=== PATIENT | female | born 1980 | race American Indian/Alaskan Native ===

== ENCOUNTER 2021-03-14 11:38 | Emergency (ER) | payer SELFPAY ==
--- NOTE | 2021-03-14 12:11 | Emergency Department Report ---
ED General Adult HPI - General Chief complaint: Upper Respiratory Infection Stated complaint: CHESTPAIN,BODYPAIN THROAT Time Seen by Provider: 03/14/21 12:03 Source: patient Mode of arrival: Ambulatory Limitations: No Limitations - History of Present Illness Initial comments: 40-year-old female patient presents with complaints of cough, conges tion, and wheezing x4 days and urinary frequency x2 days. She admits to loss of taste and smell. She is not vaccinated for COVID-19. She denies any hemoptysis or shortness of breath, but admits to chest pain with coughing only. Past medical history includes recurrent bronchitis and depression. Surgical history total hysterectomy. She has not been tested for COVID-19. She denies any abdominal pain, nausea/vomiting, diarrhea, or stool changes. No vaginal discharge or vaginal bleeding/dyspareunia per patient. No known drug allergies per patient. - Related Data Home Medications Medication Instructions Recorded Confirmed Last Taken Butalb/Acetamin/Caff 50-325-40 1 tab PO Q4H PRN 05/23/13 05/23/13 05/23/13 09:00 [Fioricet] SUMAtriptan [Imitrex] 1 spray INNOSTRIL Q6H PRN 05/23/13 05/23/13 05/23/13 13:00 Previous Rx's Medication Instructions Recorded Last Taken Type HYDROcodone/ACETAMINOPHEN [[place] 1 each PO Q6HR PRN #20 tablet 05/23/13 Unknown Rx 5/325 Tablet] Ibuprofen [Motrin] 800 mg PO TID PRN #60 tablet 05/23/13 Unknown Rx Metaxalone [Skelaxin] 800 mg PO TID #30 tablet 05/23/13 Unknown Rx Albuterol Mdi (or & Nicu Only) 2 puff IH QID PRN #8.5 gram 03/14/21 Unknown Rx [ProAir HFA Inhaler] Azithromycin [Zithromax Z-GREGORY] 0 mg PO DAILY #6 tab 03/14/21 Unknown Rx Prednisone [predniSONE 5 mg (6-Day 5 mg PO .TAPER #1 tab.ds.pk 03/14/21 Unknown Rx Pack, 21 Tabs)] Allergies Allergy/AdvReac Type Severity Reaction Status Date / Time STERRTERA Allergy Rash Uncoded 03/14/21 12:00 ED Review of Systems ROS: Stated complaint: CHESTPAIN,BODYPAIN THROAT Other details as noted in HPI Constitutional: chills, fever (100.5 at home), malaise. denies: diaphoresis, weakness ENT: throat pain Respiratory: cough, wheezing. denies: shortness of breath Cardiovascular: as per HPI Gastrointestinal: denies: abdominal pain, nausea, vomiting Genitourinary: dysuria, frequency. denies: hematuria, discharge Musculoskeletal: denies: back pain Neurological: denies: headache ED Past Medical Hx - Past Medical History Hx Hypertension: Yes Hx of Cancer: Yes Hx Headaches / Migraines: Yes Additional medical history: DIVERCULITIS - Surgical History Additional Surgical History: tubal ligation/ HYSTO - Social History Smoking Status: Current Every Day Smoker Substance Use Type: Prescribed - Medications Home Medications: Home Medications Medication Instructions Recorded Confirmed Last Taken Type Butalb/Acetamin/Caff 50-325-40 1 tab PO Q4H PRN 05/23/13 05/23/13 05/23/13 09:00 History [Fioricet] HYDROcodone/ACETAMINOPHEN [[place] 1 each PO Q6HR PRN #20 tablet 05/23/13 Unknown Rx 5/325 Tablet] Ibuprofen [Motrin] 800 mg PO TID PRN #60 tablet 05/23/13 Unknown Rx Metaxalone [Skelaxin] 800 mg PO TID #30 tablet 05/23/13 Unknown Rx SUMAtriptan [Imitrex] 1 spray INNOSTRIL Q6H PRN 05/23/13 05/23/13 05/23/13 13:00 History Albuterol Mdi (or & Nicu Only) 2 puff IH QID PRN #8.5 gram 03/14/21 Unknown Rx [ProAir HFA Inhaler] Azithromycin [Zithromax Z-GREGORY] 0 mg PO DAILY #6 tab 03/14/21 Unknown Rx Prednisone [predniSONE 5 mg (6-Day 5 mg PO .TAPER #1 tab.ds.pk 03/14/21 Unknown Rx Pack, 21 Tabs)] ED Physical Exam - General Limitations: No Limitations General appearance: alert, in no apparent distress - Head Head exam: Present: atraumatic, normocephalic - Eye Eye exam: Present: normal appearance. Absent: scleral icterus - Neck Neck exam: Present: normal inspection - Respiratory Respiratory exam: Present: normal lung sounds bilaterally. Absent: respiratory distress - Cardiovascular Cardiovascular Exam: Present: regular rate, normal rhythm - GI/Abdominal GI/Abdominal exam: Present: soft. Absent: tenderness - Back Exam Back exam: Absent: CVA tenderness (R), CVA tenderness (L) - Neurological Exam Neurological exam: Present: alert, oriented X3, normal gait - Psychiatric Psychiatric exam: Present: normal affect, normal mood - Skin Skin exam: Present: warm, dry, intact, normal color. Absent: rash, cyanosis, diaphoretic ED Course Vital Signs 03/14/21 03/14/21 03/14/21 12:02 12:05 12:38 Temperature 98.9 F Pulse Rate 99 H Respiratory 18 18 Rate Blood Pressure 152/101 Blood Pressure [Left] O2 Sat by Pulse 98 98 100 Oximetry 03/14/21 03/14/21 03/14/21 12:46 12:50 13:00 Temperature 98.3 F Pulse Rate 96 H 96 H 92 H Respiratory 13 13 11 L Rate Blood Pressure 165/114 165/114 157/121 Blood Pressure [Left] O2 Sat by Pulse 100 100 100 Oximetry 03/14/21 03/14/21 03/14/21 13:16 13:30 13:46 Temperature Pulse Rate 85 85 99 H Respiratory 20 14 15 Rate Blood Pressure 157/121 157/121 157/121 Blood Pressure [Left] O2 Sat by Pulse 100 100 100 Oximetry 03/14/21 03/14/21 03/14/21 14:00 14:16 14:30 Temperature Pulse Rate 87 86 83 Respiratory 16 18 16 Rate Blood Pressure 150/98 150/98 145/104 Blood Pressure [Left] O2 Sat by Pulse 100 100 100 Oximetry 03/14/21 03/14/21 14:46 14:55 Temperature 98.2 F Pulse Rate 91 H 86 Respiratory 11 L 18 Rate Blood Pressure 145/104 Blood Pressure 150/98 [Left] O2 Sat by Pulse 100 100 Oximetry ED Medical Decision Making - Radiology Data Radiology results: report reviewed CHEST 2 VIEWS INDICATION / CLINICAL INFORMATION: cough. COMPARISON: None available. FINDINGS: SUPPORT DEVICES: None. HEART / MEDIASTINUM: No significant abnormality. LUNGS / PLEURA: No significant pulmonary or pleural abnormality. No pneumothorax. ADDITIONAL FINDINGS: No significant additional findings. IMPRESSION: 1. No acute findings. - Medical Decision Making 40-year-old female patient presents with complaints of cough, congestion, and wheezing x4 days and urinary frequency x2 days. She admits to loss of taste and smell. She is not vaccinated for COVID-19. She denies any hemoptysis or shortness of breath, but admits to chest pain with coughing only. Past medical history includes recurrent bronchitis and depression. Surgical history total hysterectomy. She has not been tested for COVID-19. She denies any abdominal pain, nausea/vomiting, diarrhea, or stool changes. No vaginal discharge or vaginal bleeding/dyspareunia per patient. No known drug allergies per patient. Repeat BP now 136/82 in room. X-rays negative for any acute abnormalities. UA is negative for UTI. Upon further questioning, patient states there is irritation to the vaginal area near her urethra with some itching. She states her symptoms feel like the last time she had a yeast infection. Treatment for bronchitis given and also Diflucan for yeast infection. Patient instructed to have outpatient COVID-19 testing performed within the next 24 to 48 hours and self quarantine until her results are back and further instructions are given. Also discussed in detail signs and symptoms that should prompt immediate return to the emergency department with patient, she verbalizes understanding. She is otherwise well-appearing, her vitals are normal, she is stable for discharge home. She continues to deny any shortness of breath and pulse ox is 98 percent on room air. Critical care attestation.: If time is entered above; I have spent that time in minutes in the direct care of this critically ill patient, excluding procedure time. ED Disposition Clinical Impression: Acute bronchitis, Suspected COVID-19 virus infection, Elevated blood pressure reading Disposition: 01 HOME / SELF CARE / HOMELESS Is pt being admited?: No Condition: Stable Instructions: Hypertension, Adult, [id number], COVID-19, Acute Bronchitis, Adult, Prevent the Spread of COVID-19 if You Are Sick - CDC, Acute Bronchitis (ED) Prescriptions: Prednisone [predniSONE 5 mg (6-Day Pack, 21 Tabs)] 5 mg PO .TAPER #1 tab.ds.pk Albuterol Mdi (or & Nicu Only) [ProAir HFA Inhaler] 2 puff IH QID PRN #8.5 gram PRN Reason: Shortness Of Breath Azithromycin [Zithromax Z-GREGORY] 0 mg PO DAILY #6 tab Referrals: PRIMARY CARE, [Primary Care Provider] - 2-3 Days (blood pressure ) Forms: Work/School Release Form(ED)
[2021-03-14 13:29] LABS: Bilirubin,Urine NEG (Negative); Blood,Urine NEG (Negative); Color,Urine Straw (Yellow); Protein,Urine <15 mg/dL mg/dL (Negative); Urobilinogen,Urine < 2.0 mg/dL (<2.0); WBC,Urine < 1.0 /HPF (0.0-6.0)
--- NOTE | 2021-03-14 14:18 | XRay Report ---
CHEST 2 VIEWS INDICATION / CLINICAL INFORMATION: cough. COMPARISON: None available. FINDINGS: SUPPORT DEVICES: None. HEART / MEDIASTINUM: No significant abnormality. LUNGS / PLEURA: No significant pulmonary or pleural abnormality. No pneumothorax. ADDITIONAL FINDINGS: No significant additional findings. IMPRESSION: 1. No acute findings. Signer Name: Waldo Patel MD Signed: 03/14/2021 2:14 PM Workstation Name: [id number]
[2021-03-14 14:56] VITALS: BP 150/98
== END 2021-03-14 15:12 | disposition home or self-care (01) ==
LOC: ED 11:38
DX: J20.9 Acute bronchitis, unspecified (principal); R03.0 Elevated blood-pressure reading, without diagnosis of hypertension; I10 Essential (primary) hypertension; Z20.822 Contact with and (suspected) exposure to COVID-19; F17.200 Nicotine dependence, unspecified, uncomplicated; Z98.51 Tubal ligation status; Z79.899 Other long term (current) drug therapy; Z88.8 Allergy status to other drugs, medicaments and biological substances
CPT/HCPCS: 71046; 81001; 99283